=== PATIENT | female | born 1935 | race Caucasian/White ===

== ENCOUNTER 2017-03-28 14:18 | Inpatient (IN) | payer OTHER ==
[~2017-03-28] VITALS: Ht 154.9 cm; Wt 45.4 kg
[2017-03-30] MEDS ORDERED: CARBIDOPA25 MG PO (08:43)
[2017-03-30] MEDS ORDERED: COZAAR25 MG PO (08:44)
[2017-03-30] MEDS ORDERED: SYNTHROID75 MCG PO (08:45)
[2017-03-30] MEDS ORDERED: ARICEPT5 MG PO (08:46)
[2017-03-30] MEDS ORDERED: LIPITOR20 MG PO (08:47)
[2017-03-30] MEDS ORDERED: DULCOLAX5 MG PO (08:48)
[2017-03-30] MEDS ORDERED: TRINTELLIX10 MG PO (08:48)
== END 2017-04-04 17:56 | disposition home health service (06) | DRG 57 ==
LOC: SEC-K 14:18 → MEDI 03-29 15:34
PROC: 0DH63UZ Insertion of Feeding Device into Stomach, Percutaneous Approach (ICD-10-PCS; principal; 2017-04-01)
DX: G30.1 Alzheimer's disease with late onset (principal); R13.12 Dysphagia, oropharyngeal phase; F02.80 Dementia in other diseases classified elsewhere, unspecified severity, without behavioral disturbance, psychotic disturbance, mood disturbance, and anxiety; G20 Parkinson's disease; Z66 Do not resuscitate
CPT/HCPCS: 240